=== PATIENT | male | born 1955 | race Two or more races ===

== ENCOUNTER 2024-12-25 09:48 | Inpatient (IN) | payer MEDICAID, OTHER ==
[~2024-12-25] VITALS: Ht 172.7 cm; Wt 107.0 kg
--- NOTE | 2024-12-25 10:40 | ED.PDOC ---
HPI Comments 69 year old male with a Hx of CVA and HTN was BIB Daughter for the c/c of HTN. Pt states that has had right hip to lower leg pain with pedal pitting edema for the past few months. Daughter states that pt was seen at urgent care and was advised to come to the ED due to CP and HTN. Pt is noted to not be taking any HTN medication, no facial drooping noted. Denies any SOB. No other associated symptoms, modifiers, recent injuries or sick contacts present at this time. Chief Complaint: High Blood Pressure Time Seen by MD: 10:34 Reviewed Notes: Nurses Notes, Medications, Allergies Allergies: Coded Allergies: NO KNOWN ALLERGIES (Unverified , 12/25/24) Information Source: Patient, Relative (Child) Mode of Arrival: Ambulatory Severity: Moderate Timing: Months Duration: Since onset Prehospital treatment: None Location: Chest (L) Onset: At Rest Cardiac Risk Factors: HTN PE Risk Factors: None History of: None Modifying Factors: Exertion Past Medical History PAST MEDICAL HISTORY: HTN Surgical History: Denies all surgeries Family History Family History: Reviewed,noncontributory to illness, No family hx of Cancer, No family hx of DM, No family hx of Heart nancy, No family hx of HTN, No family hx ofKidney nancy, No family hx of Liver nancy, No family hx of Lung nancy, No family hx of Stroke Social History Smoker: Non-Smoker Alcohol: Denies ETOH Use Drugs: Denies Drug Use Lives In: Home Constitutional: reports: weakness; denies: chills, diaphoresis, fatigue, fever, malaise, sweats, others EENTM: denies: blurred vision, double vision, ear bleeding, ear discharge, ear drainage, ear pain, ear ringing, eye pain, eye redness, hearing loss, mouth pain, mouth swelling, nasal discharge, nose bleeding, nose congestion, nose pain, photophobia, tearing, throat pain, throat swelling, voice changes, others Respiratory: denies: cough, hemoptysis, orthopnea, SOB at rest, shortness of breath, SOB with excertion, stridor, wheezing, others Cardiovascular: denies: chest pain, dizzy spells, diaphoresis, Dyspnea on exertion, edema, irregular heart beat, left arm pain, lightheadedness, palpitations, PND, syncope, others Gastrointestinal: denies: abdomen distended, abdominal pain, blood streaked bowels, constipated, diarrhea, dysphagia, difficulty swallowing, hematemesis, melena, nausea, poor appetite, poor fluid intake, rectal bleeding, rectal pain, vomiting, others Genitourinary: denies: burning, dysuria, flank pain, frequency, hematuria, incontinence, penile discharge, penile sore, pain, testicle pain, testicle swelling, urgency, others Neurological: denies: dizziness, fainting, headache, left sided numbness, left sided weakness, numbness, paresthesia, pre-existing deficit, right sided numbn ess, right sided weakness, seizure, speech problems, tingling, tremors, weakness, others Musculoskeletal: denies: back pain, gout, joint pain, joint swelling, muscle pain, muscle stiffness, neck pain, others Integumetry: denies: bruises, change in color, change in hair/nails, dryness, laceration, lesions, lumps, rash, wounds, others Allergic/Immunocompromised: denies: Difficulty Healing, Frequent Infections, Hives, Itching, others Hematologic/Lymphatic: denies: anemia, blood clots, easy bleeding, easy bruising, swollen glands, others Endocrine: denies: excessive hunger, excessive sweating, excessive thirst, excessive urination, flushing, intolerance to cold, intolerance to heat, unexplained weight gain, unexplained weight loss, others Psychiatric: denies: anxiety, bipolar disorder, depression, hopeless, panic disorder, schizophrenia, sleepless, suicidal, others All Other Systems: Reviewed and Negative Physical Exam General Appearance: Mild Distress, Normal, Obese, Other (Chronic ill appearing) HEENT: Normal ENT Inspection, Pharynx Normal, TMs Normal Neck: Full Range of Motion, Non-Tender, Normal Respiratory: Chest Non-Tender, Lungs Clear, No Accessory Muscle Use, No Respiratory Distress, Normal Breath Sounds Cardiovascular: No Edema, No JVD, No Murmur, Normal Peripheral Pulses, Tachycardia Breast Exam: Deferred Gastrointestinal: Non Tender, No Pulsatile Mass, Normal Bowel Sounds, Soft Genitalia: Deferred Pelvic: Deferred Rectal: Deferred Extremities: Leg edema, Normal range of motion, Non-tender, No pedal edema Musculoskeletal : Apperance: Normal Neurologic: Alert, No Motor Deficits, Normal Mood Cerebellar Function: Normal Reflexes: Normal Skin: Dry, Normal Color, Warm Lymphatic: No Adenopathy Was a procedure done? Was a procedure done?: No CP Differential Dx Differential Diagnosis: Angina, Anxiety / Panic Attack, Electrolyte Disorder, Heart Failure, Pulmonary Embolus, Sinus Tachycardia X-Ray, Labs, Meds, VS Vital Signs Date Time Temp Pulse Resp B/P (MAP) Pulse Ox O2 Delivery O2 Flow Rate FiO2 12/25/24 11:48 99.8 94 20 194/91 (125) 95 99.8 12/25/24 11:48 94 20 95 Room Air 12/25/24 10:04 95 12/25/24 10:03 98.8 105 16 194/93 (126) 97 98.8 Lab Test 12/25/24 10:49 Range/Units White Blood Count 7.2 4.4-10.8 10^3/uL Red Blood Count 4.68 4.5-5.90 10^6/uL Hemoglobin 14.1 13.5-17.5 g/dL Hematocrit 41.6 41.0-53.0 % Mean Corpuscular Volume 88.9 80.0-100.0 fL Mean Corpuscular Hemoglobin 30.2 28.0-32.0 pg Mean Corpuscular Hemoglobin Concent 34.0 32.0-36.0 g/dL Red Cell Distribution Width 14.4 H 11.8-14.3 % Platelet Count 253 140-450 10^3/uL Mean Platelet Volume 8.2 6.9-10.8 fL Neutrophils (%) (Auto) 67.9 37.0-80.0 % Lymphocytes (%) (Auto) 19.1 10.0-50.0 % Monocytes (%) (Auto) 7.7 0.0-12.0 % Eosinophils (%) (Auto) 4.2 0.0-7.0 % Basophils (%) (Auto) 1.1 0.0-2.0 % Neutrophils # (Auto) 4.9 1.6-8.6 10 ^3/uL Lymphocytes # (Auto) 1.4 0.4-5.4 10 ^3/uL Monocytes # (Auto) 0.6 0-1.3 10 ^3/uL Eosinophils # (Auto) 0.3 0-0.8 10 ^3/uL Basophils # (Auto) 0.1 0-0.2 10 ^3/uL Nucleated Red Blood Cells 0.1 % D-Dimer, Quantitative 1.98 H 0.0-0.49 mg/L FEU Sodium Level 144 136-145 mmol/L Potassium Level 3.3 L 3.5-5.1 mmol/L Chloride Level 112 H 98-107 mmol/L Carbon Dioxide Level 21 20-31 mmol/L Anion Gap 11 5-15 Blood Urea Nitrogen 9 9-23 mg/dL Creatinine 1.01 0.700-1.30 mg/dL Glomerular Filtration Rate Calc 81 >90 mL/min BUN/Creatinine Ratio 8.9 L 10.0-20.0 Serum Glucose 138 H 74-106 mg/dL Calcium Level 10.2 8.7-10.4 mg/dL Troponin I High Sensitivity 13 </=54 ng/L Time of 1ST Reevaluation: 11:05 Reevaluation 1ST: Unchanged Patient Education/Counseling: Diagnosis, Treatment Family Education/Counseling: Diagnosis, Treatment SEPSIS Sepsis Screen Date sepsis recognized/suspect: Dec 25, 2024 Time Sepsis recognized/suspect: 957 Recent Procedure: No On Antibiotic Therapy: No Respiratory Rate >20: No Heart Rate >90: No Temp<36 C (96.8 F) or >38.3 C: No SBP <90 or MAP <65 mmHG: No New Acute Mental Status Change: No Is the patient on CPAP, BIPAP,: No Orders/Vitals/Labs Physician Orders Troponin-I Hs (12/25/24 11:36) Troponin-I Hs (12/25/24 13:36) Rt Lower Dvt (12/25/24 10:36) Head Without Contrast (12/25/24 10:36) Chest Portable (12/25/24 10:36) Electrocardigram (12/25/24 10:38) Vital Signs Date Time Temp Pulse Resp B/P (MAP) Pulse Ox O2 Delivery O2 Flow Rate FiO2 12/25/24 11:48 99.8 94 20 194/91 (125) 95 99.8 12/25/24 11:48 94 20 95 Room Air 12/25/24 10:04 95 12/25/24 10:03 98.8 105 16 194/93 (126) 97 98.8 Laboratory Tests Test 12/25/24 10:49 White Blood Count 7.2 10^3/uL (4.4-10.8) Departure 1 Departure Time of Disposition: 11:57 (Patient with worsening right-sided weakness hyp ertensive. Patient's CT with age-indeterminate infarct. We will admit patient for further workup and expert consultation.) Impression: Primary Impression: Right leg weakness Additional Impression: Abnormal head CT Disposition: ADMITTED INPATIENT Admit to: Med Surg Condition: Serious Critical Care Note Critical Care Time?: Yes Critical care comment: Concern for CVA Authorized and Performed by: Carlitos Arnett MD Total critical care time: Approximately 42 minutes Due to a high probability of clinically significant, life threatening deterioration, the patient required my highest level of preparedness to intervene emergently and I personally spent this critical care time directly and personally managing the patient. This critical care time included obtaining a history; examining the patient; pulse oximetry; ordering and review of studies; arranging urgent treatment with development of a management plan; evaluation of patient's response to treatment; frequent reassessment; and, discussions with other providers. This critical care time was performed to assess and manage the high probability of imminent, life-threatening deterioration that could result in multi-organ failure. It was exclusive of separately billable procedures and treating other patients and teaching time. Please see my other sections and the rest of the note for further information on patient assessment and treatment. Stability Stability form required: No Heart Score Heart Score: Heart Score Response (Comments) Value History N/A 0 EKG N/A 0 Age N/A 0 Risk Factors N/A 0 Troponin N/A 0 Total 0 I personally scribed for CARLITOS ARNETT MD ([email or web address]) on 12/25/24 at 10:39. Electronically submitted by Job Preston ([email or web address]). CARLITOS ARNETT MD Dec 25, 2024 10:39
[2024-12-25 11:09] LABS: Basophils # (auto) 0.1 10 ^3/uL (0-0.2); Basophils % (auto) 1.1 % (0.0-2.0); Eosinophils # (auto) 0.3 10 ^3/uL (0-0.8); Eosinophils % (auto) 4.2 % (0.0-7.0); Hematocrit 41.6 % (41.0-53.0); Hemoglobin 14.1 g/dL (13.5-17.5); Lymphocytes # (auto) 1.4 10 ^3/uL (0.4-5.4); Lymphocytes % (auto) 19.1 % (10.0-50.0); Mean Corpuscular Hemoglobin 30.2 pg (28.0-32.0); Mean Corpuscular Volume 88.9 fL (80.0-100.0); Monocytes # (auto) 0.6 10 ^3/uL (0-1.3); Monocytes % (auto) 7.7 % (0.0-12.0); Neutrophils # (auto) 4.9 10 ^3/uL (1.6-8.6); Neutrophils % (auto) 67.9 % (37.0-80.0); Nucleated Red Blood Cells % 0.1 %; Platelet Count (auto) 253 10^3/uL (140-450); Red Blood Cells 4.68 10^6/uL (4.5-5.90); Red Cell Distribution Width 14.4 % (11.8-14.3); White Blood Cell 7.2 10^3/uL (4.4-10.8)
--- NOTE | 2024-12-25 11:12 | DVH ---
CHEST RADIOGRAPH Indication: right leg pain, weakness Technique: Single frontal view of the chest was obtained COMPARISON: None FINDINGS: Lines and Tubes: None Lungs: Clear Pleura: No effusion. No pneumothorax. Cardiomediastinal contours: Unremarkable Bones: Unremarkable IMPRESSION: No acute disease.
[2024-12-25 11:18] LABS: Chloride 112 mmol/L (98-107); Potassium 3.3 mmol/L (3.5-5.1); Sodium 144 mmol/L (136-145)
[2024-12-25 11:19] LABS: Anion Gap 11 (5-15); Calcium 10.2 mg/dL (8.7-10.4); Carbon Dioxide 21 mmol/L (20-31)
--- NOTE | 2024-12-25 11:20 | DVH ---
EXAM: CT HEAD WITHOUT CONTRAST INDICATION: right leg weakness, htn TECHNIQUE: CT of the head without intravenous contrast. Radiation Dose : 1. Head: CT Dose: CTDI volume is 58.34 mGy. Dose-length product is 1051.89 mGy*cm The dose indicators for CT are the volume Computed Tomography (CT) Dose Index (CTDIvol) and the Dose Length Product (DLP), and are measured in units of mGy and mGy-cm, respectively. These indicators are not patient dose, but values generated from the CT scanner acquisition factors. The report includes radiation exposure data for exposures received during this examination. COMPARISON: None FINDINGS: Subtle hypoattenuation in the posterior left internal capsule. The ventricles, sulci and cisterns are age appropriate. The rubi-white differentiation is intact. Patchy periventricular and subcortical white matter hypoattenuation is nonspecific but may be related to small vessel ischemic disease. The visualized paranasal sinuses and mastoid air cells are clear. The surrounding soft tissues and osseous structures are unremarkable. IMPRESSION: Subtle hypoattenuation in the posterior left internal capsule may represent an age indeterminate infa rct felt to be chronic, however, no prior CT is available for comparison. Clinical correlation advise d. MRI can be obtained to further evaluate if clinically indicated. Otherwise, no acute intracranial abnormality.
--- NOTE | 2024-12-25 11:20 | DVH ---
Right lower extremity venous duplex Clinical History: right leg swelling and pain Comparison: None Technique: Duplex Doppler evaluation of the deep venous system of the right lower extremity from the common femo ral vein to the popliteal vein including color Doppler and spectral/pulsed waveform analysis was perf ormed. Findings: The common femoral vein demonstrates appropriate compressibility and waveform variability. There is compressibility/patency of the great saphenous vein at the proximal thigh. The femoral vein demonstrates appropriate compressibility and waveform variability. The deep femoral vein demonstrates appropriate compressibility and waveform variability. The popliteal vein demonstrates appropriate compressibility and waveform variability. There is normal compressibility at the tibioperoneal trunk. Impression: No right femoropopliteal venous thrombosis.
[2024-12-25 11:24] LABS: BUN/Creatinine Ratio 8.9 (10.0-20.0)
[2024-12-25 11:27] LABS: Blood Urea Nitrogen 9 mg/dL (9-23); Glucose 138 mg/dL (74-106)
[2024-12-25] MEDS ORDERED: ONDANSETRON HCL 4 MG/2 ML VIAL IV PRN (15:30)
[2024-12-25] MEDS ORDERED: ACETAMINOPHEN 325 MG TAB PO PRN (15:30)
[2024-12-25] MEDS ORDERED: DOCUSATE SOD 100 MG CAP PO PRN (15:30)
[2024-12-25] MEDS: IOHEXOL 350 MG/ML 100ML IJ ONE (16:45)
[2024-12-25] MEDS: POTASSIUM CHL 20 Meq TABLET PO ONE (16:45)
--- NOTE | 2024-12-25 18:03 | DVHHP2 ---
History of Present Illness Reason for Visit: Hypertensive urgency History of Present Illness The patient is a 69-year-old male with past medical history of CVA and hypertension who presented to [facility] ED with complaint of high blood pressure. Patient reports he has been experiencing right hip to lower leg pain with pedal pitting edema for the past few months. Daughter states that patient was seen at urgent care and was advised to come to the ED. patient was seen and evaluated in the ED, laboratory data shows WBC 7.2, platelets 253, sodium 144, potassium 3.3, BUN nine, creatinine 1.01, GFR 81, glucose 138, calcium 10.2, troponin 18, D-dimer 1.98, blood pressure 194/93, heart rate 79, temperature 98.5 F, O2 saturation 97% on room air. Extremity venous study show no right femoropopliteal venous thrombosis, CT angiography chest results pending. Patient was given IV hydralazine, please see medication orders section in the computer. On my assessment, patient denied chest pain, no headache, no diaphoresis, no dizziness, no shortness of breath, no nausea, no vomiting, no fever, no chills. Patient was admitted for further evaluation and medical management. Past Medical History Hypertension, CVA Past Surgical History Denies all surgeries Family History Reviewed, noncontributory to the management of this case. Past Social History The patient lives at home, denies smoking, alcohol or illicit drugs abuse. Review of Systems Constitutional: Yes: Weakness; No: Fever, Chills, Sweats, Malaise, Other Eyes: No: Pain, Vision change, Conjunctivae inflammation, Eyelid inflammation, Other, Redness ENT: No: Ear pain, Ear discharge, Nose pain, Nose discharge, Nose congestion, Mouth pain, Mouth swelling, Throat pain, Throat swelling, Other Respiratory: No: Cough, Dry, Shortness of breath, SOB with excertion, Wheezing, Hemoptysis, Pleuritic Pain, Sputum, Wheezing, Other Cardiovascular: Other (Hypertension); No: Chest Pain, Palpitations, Orthopnea, Paroxysmal Noc. Dyspnea, Edema, Lt Headedness Gastrointestinal: No: Nausea, Vomiting, Abdominal Pain, Diarrhea, Constipation, Melena, Hematochezia, Other Genitourinary: No Dysuria, No Frequency, No Incontinence, No Hematuria, No Retention, No Other Musculoskeletal: No: other, neck pain, shoulder pain, arm pain, back pain, hand pain, leg pain, foot pain Skin: No: Rash, Lesions, Jaundice, Bruising, Other Neurological: No: Weakness, Numbness, Incoordination, Change in speech, Confusion, Seizures, Other Allergies: Coded Allergies: NO KNOWN ALLERGIES (Unverified , 12/25/24) Medications Current Medications Medications Dose Ordered Sig/Saw Route Start Time Stop Time Status Last Admin Dose Admin Losartan Potassium 100 mg DAILY PO 12/26/24 10:00 Hydralazine HCl 10 mg Q6HP PRN IV 12/25/24 15:30 Amlodipine Besylate 10 mg DAILY PO 12/26/24 10:00 Atorvastatin Calcium 20 mg HS PO 12/25/24 22:00 Sodium Chloride 10 ml Q8HR IV 12/25/24 22:00 Acetaminophen/ Hydrocodone Bitart 1 tab Q4HP PRN PO 12/25/24 15:30 Ondansetron HCl 4 mg Q4HP PRN IV 12/25/24 15:30 Docusate Sodium 100 mg BIDPRN PRN PO 12/25/24 15:30 Acetaminophen 650 mg Q6HP PRN PO 12/25/24 15:30 Exam Vital Signs Vital Signs Date Time Temp Pulse Resp B/P (MAP) Pulse Ox O2 Delivery O2 Flow Rate FiO2 12/25/24 15:01 98.5 79 20 178/94 (122) 97 98.5 12/25/24 11:48 Room Air General Appearance: Alert, Oriented X3, Cooperative, No acute distress HEENT: Atraumatic, PERRLA, EOMI, Mucous membr. moist/pink Respiratory: Clear to auscultation, Normal air movement Cardiovascular: Regular rate, Normal S1, Normal S2, No murmurs Abdominal: Normal bowel sounds, Soft, No tenderness, No hepatospenomegaly, No masses Extremities: No clubbing, No cyanosis, No edema, Normal pulses, No tenderness/swelling Skin: No rashes, No breakdown, No significant lesion Neuro: Normal speech, Normal tone, Sensation intact, Cranial nerves 3-12 NL, Reflexes 2+, Other (Generalized weakness) Psych/Mental Status: Mental status NL, Mood NL Labs/Xrays Labs Test 12/25/24 14:28 12/25/24 10:49 Range/Units Troponin I High Sensitivity 18 </=54 ng/L White Blood Count 7.2 4.4-10.8 10^3/uL Red Blood Count 4.68 4.5-5.90 10^6/uL Hemoglobin 14.1 13.5-17.5 g/dL Hematocrit 41.6 41.0-53.0 % Mean Corpuscular Volume 88.9 80.0-100.0 fL Mean Corpuscular Hemoglobin 30.2 28.0-32.0 pg Mean Corpuscular Hemoglobin Concent 34.0 32.0-36.0 g/dL Red Cell Distribution Width 14.4 H 11.8-14.3 % Platelet Count 253 140-450 10^3/uL Mean Platelet Volume 8.2 6.9-10.8 fL Neutrophils (%) (Auto) 67.9 37.0-80.0 % Lymphocytes (%) (Auto) 19.1 10.0-50.0 % Monocytes (%) (Auto) 7.7 0.0-12.0 % Eosinophils (%) (Auto) 4.2 0.0-7.0 % Basophils (%) (Auto) 1.1 0.0-2.0 % Neutrophils # (Auto) 4.9 1.6-8.6 10 ^3/uL Lymphocytes # (Auto) 1.4 0.4-5.4 10 ^3/uL Monocytes # (Auto) 0.6 0-1.3 10 ^3/uL Eosinophils # (Auto) 0.3 0-0.8 10 ^3/uL Basophils # (Auto) 0.1 0-0.2 10 ^3/uL Nucleated Red Blood Cells 0.1 % D-Dimer, Quantitative 1.98 H 0.0-0.49 mg/L FEU Sodium Level 144 136-145 mmol/L Potassium Level 3.3 L 3.5-5.1 mmol/L Chloride Level 112 H 98-107 mmol/L Carbon Dioxide Level 21 20-31 mmol/L Anion Gap 11 5-15 Blood Urea Nitrogen 9 9-23 mg/dL Creatinine 1.01 0.700-1.30 mg/dL Glomerular Filtration Rate Calc 81 >90 mL/min BUN/Creatinine Ratio 8.9 L 10.0-20.0 Serum Glucose 138 H 74-106 mg/dL Calcium Level 10.2 8.7-10.4 mg/dL PATIENT: MAKENZIE SILVERACCT: [id number] UNIT: [id number] : 1955 LOC: ER ROOM / BED: / AGE / SEX: 69 / M ADM STATUS: REG ER SERVICE 1036 ORDERING PHYSICIAN: CARLITOS GARZA MD PROCEDURE(s): RLDVT - RT Lower DVT REASON: right leg swelling and pain ORDER NUMBER(s): [id number], ACCESSION NUMBER(s): [id number] Right lower extremity venous duplex Clinical History: right leg swelling and pain Comparison: None Technique: Duplex Doppler evaluation of the deep venous system of the right lower extremity from the common femoral vein to the popliteal vein including color Doppler and spectral/pulsed waveform analysis was performed. Findings: The common femoral vein demonstrates appropriate compressibility and waveform v ariability. There is compressibility/patency of the great saphenous vein at the proximal thigh. The femoral vein demonstrates appropriate compressibility and waveform variability. The deep femoral vein demonstrates appropriate compressibility and waveform variability. The popliteal vein demonstrates appropriate compressibility and waveform variability. There is normal compressibility at the tibioperoneal trunk. Impression: No right femoropopliteal venous thrombosis. ORDERING PHYSICIAN: CARLITOS GARZA MD PROCEDURE(s): HWOCT - HEAD WITHOUT CONTRAST REASON: right leg weakness, htn ORDER NUMBER(s): [id number], ACCESSION NUMBER(s): [id number] EXAM: CT HEAD WITHOUT CONTRAST INDICATION: right leg weakness, htn TECHNIQUE: CT of the head without intravenous contrast. Radiation Dose: 1. Head: CT Dose: CTDI volume is 58.34 mGy. Dose-length product is 1051.89 mGy*cm The dose indicators for CT are the volume Computed Tomography (CT) Dose Index (CTDIvol) and the Dose Length Product (DLP), and are measured in units of mGy and mGy-cm, respectively. These indicators are not patient dose, but values generated from the CT scanner acquisition factors. The report includes radiation exposure data for exposures received during this examination. COMPARISON: None FINDINGS: Subtle hypoattenuation in the posterior left internal capsule. The ventricles, sulci and cisterns are age appropriate. The rubi-white differentiation is intact. Patchy periventricular and subcortical white matter hypoattenuation is nonspecific but may be related to small vessel ischemic disease. The visualized paranasal sinuses and mastoid air cells are clear. The surrounding soft tissues and osseous structures are unremarkable. IMPRESSION: Subtle hypoattenuation in the posterior left internal capsule may represent an age indeterminate infarct felt to be chronic, however, no prior CT is available for comparison. Clinical correlation advised. MRI can be obtained to further evaluate if clinically indicated. Otherwise, no acute intracranial abnormality. ORDERING PHYSICIAN: CARLITOS GARZA MD PROCEDURE(s): CXRP - CHEST PORTABLE REASON: right leg pain, weakness ORDER NUMBER(s): [id number], ACCESSION NUMBER(s): [id number] CHEST RADIOGRAPH Indication: right leg pain, weakness Technique: Single frontal view of the chest was obtained COMPARISON: None FINDINGS: Lines and Tubes: None Lungs: Clear Pleura: No effusion. No pneumothorax. Cardiomediastinal contours: Unremarkable Bones: Unremarkable IMPRESSION: No acute disease. Assessment/Plan Assessment/Plan Hypertensive urgency Hypokalemia Elevated D-dimer Generalized weakness Plan 1. Admit to telemetry unit 2. Breathing treatment 3. Pain control management 4. Management of fluids and electrolytes 5. Consultation for hospitalist 6. Diagnostic tests CT angiography 7. DVT prophylaxis-on aspirin 8. Repeat labs CBC, CMP in a.m. 9. Continue with current medical management 10. Treatment plan discussed with patient and RN. Patient verbalized understanding. Plan discussed with: Patient, Other (RN) My Orders Orders - VICKI OLIVER DNP Procedure Category Date Status Time Losartan Tablet PHA 12/26/24 In Process (Cozaar Tablet) 10:00 Hydralazine Injection PHA 12/25/24 In Process (Apresoline Inject 15:30 Amlodipine Tablet PHA 12/26/24 In Process (Norvasc Tablet) 10:[address] 12/25/24 Taken Contrast 15:17 Atorvastatin (Lipitor) PHA 12/25/24 In Process 22:00 Allergies OSMANY 12/25/24 In Process 15:17 Code Status CODE 12/25/24 Transmitted 15:17 Sodium Chloride Lock PHA 12/25/24 In Process (Saline Lock Ns) 22:00 Oxygen Per Hour RT 12/25/24 Transmitted 15:17 Hydrocodone-Acet PHA 12/25/24 In Process 5/325mg Tab ([place] 15:30 Ondansetron Hcl PHA 12/25/24 In Process (Zofran) 15:30 Docusate Sodium PHA 12/25/24 In Process Capsule (Colace 15:30 Fall Risk Precautions OSMANY 12/25/[address] 15:17 Complete Blood Count LAB 12/26/24 Verified 04:00 Comprehensive LAB 12/26/24 Verified Metabolic Panel 04:00 Cardiac DIET 12/25/24 Transmitted Diet-2gna,Lofat,Lochol Dinner Condition: Serious OSMANY 12/25/24 In Process 15:17 Acetaminophen Tablet PHA 12/25/24 In Process (Tylenol Tablet) 15:30 Maintain Bed Rest OSMANY 12/25/24 In Process 15:17 Sequential OSMANY 12/25/24 In Process Compression Device Problem List: (1) Hypertensive urgency (2) Hypokalemia (3) Elevated d-dimer (4) Generalized weakness Date of Service: Dec 25, 2024 Billing Provider: VICKI OLIVER DNP Common Visit Codes: 96101-[id number] INP/OBS CARE (HIGH) VICKI OLIVER DNP Dec 25, 2024 18:03
[2024-12-25] MEDS ORDERED: MORPHINE SULFATE INJ 2 MG/ml SYRG IV PRN (18:15)
[2024-12-25] MEDS ORDERED: NITROGLYCERIN 0.4 MG SL TAB SL PRN (18:15)
[2024-12-25] MEDS: hydrALAZINE HCL 20 MG/ML VL IV PRN (18:21)
[2024-12-25] MEDS ORDERED: ATOR20TA PO (21:39)
[2024-12-25] MEDS ORDERED: LOSA100T14 PO (21:39)
[2024-12-25] MEDS: SODIUM CHLOR 0.9% PF (SALINE LOCK) 10ML VIAL/SYR IV SCH (22:09)
[2024-12-25] MEDS: ATORVASTATIN 20 MG TAB PO SCH (22:09)
[2024-12-25] MEDS: amLODIPine BESYLATE 5 MG TAB PO ONE (22:09)
[2024-12-25 23:50] VITALS: BP 137/88; PULSE 74; RESP 18; TEMP 98; O2SAT 98
[2024-12-26] VITALS (8 sets, daily range): BP systolic 128–156; BP diastolic 74–85; PULSE 68–96; RESP 16–20; TEMP 97.3–98.8; O2SAT 96–99
[2024-12-26 06:41] LABS: Basophils # (auto) 0.1 10 ^3/uL (0-0.2); Basophils % (auto) 1.1 % (0.0-2.0); Eosinophils # (auto) 0.4 10 ^3/uL (0-0.8); Eosinophils % (auto) 5.8 % (0.0-7.0); Hematocrit 40.4 % (41.0-53.0); Hemoglobin 13.6 g/dL (13.5-17.5); Lymphocytes # (auto) 1.3 10 ^3/uL (0.4-5.4); Lymphocytes % (auto) 21.1 % (10.0-50.0); Mean Corpuscular Hemoglobin 29.9 pg (28.0-32.0); Mean Corpuscular Hgb Conc. 33.8 g/dL (32.0-36.0); Mean Corpuscular Volume 88.6 fL (80.0-100.0); Monocytes # (auto) 0.7 10 ^3/uL (0-1.3); Monocytes % (auto) 10.7 % (0.0-12.0); Neutrophils # (auto) 3.8 10 ^3/uL (1.6-8.6); Neutrophils % (auto) 61.3 % (37.0-80.0); Nucleated Red Blood Cells % 0.2 %; Platelet Count (auto) 249 10^3/uL (140-450); Red Blood Cells 4.56 10^6/uL (4.5-5.90); Red Cell Distribution Width 14.2 % (11.8-14.3); White Blood Cell 6.2 10^3/uL (4.4-10.8)
[2024-12-26 07:00] LABS: Albumin 3.8 g/dL (3.2-4.8); Alkaline Phosphatase 65 U/L (46-116); Anion Gap 12 (5-15); BUN/Creatinine Ratio 11.4 (10.0-20.0); Bilirubin, Total 0.6 mg/dL (0.2-1.0); Blood Urea Nitrogen 10 mg/dL (9-23); Calcium 9.1 mg/dL (8.7-10.4); Carbon Dioxide 21 mmol/L (20-31); Glucose 90 mg/dL (74-106); Sodium 143 mmol/L (136-145); Total Protein 6.3 g/dL (5.7-8.2)
[2024-12-26 07:10] LABS: Alanine Aminotransferase 60 U/L (7-40); Aspartate Aminotransferase 53 U/L (<34); Chloride 110 mmol/L (98-107); Potassium 3.2 mmol/L (3.5-5.1)
[2024-12-26] MEDS: amLODIPine BESYLATE 5 MG TAB PO SCH (08:41)
[2024-12-26] MEDS: LOSARTAN POTASSIUM 50 MG TAB PO SCH (08:55)
--- NOTE | 2024-12-26 16:20 | DVHPN2 ---
Subjective in bed resting and feeling well Reviewed: H&P, Labs Changes from previous H/P or p: No Changes Eyes: No Pain, No Vision change, No Conjunctivae inflammation, No Eyelid inflammation, No Other, No Redness ENT: No Ear pain, No Ear discharge, No Nose pain, No Nose discharge, No Nose congestion, No Mouth pain, No Mouth swelling, No Throat pain, No Throat swelling, No Other Cardiovascular: No Chest Pain, No Palpitations, No Orthopnea, No Paroxysmal Noc. Dyspnea, No Edema, No Lt Headedness; Other (Hypertension) Respiratory: No Cough, No Dry, No Shortness of breath, No SOB with excertion, No Wheezing, No Hemoptysis, No Pleuritic Pain, No Sputum, No Other Gastrointestinal: No Nausea, No Vomiting, No Abdominal Pain, No Diarrhea, No Constipation, No Melena, No Hematochezia, No Other Genitourinary: No Dysuria, No Frequency, No Incontinence, No Hematuria, No Retention, No Other Musculoskeletal: No other, No neck pain, No shoulder pain, No arm pain, No back pain, No hand pain, No leg pain, No foot pain Skin: No Rash, No Lesions, No Jaundice, No Bruising, No Other Objective Vitals Vital Signs Date Time Temp Pulse Resp B/P (MAP) Pulse Ox O2 Delivery O2 Flow Rate FiO2 12/26/24 12:29 97.8 69 18 128/77 (94) 96 97.8 12/26/24 08:00 Room Air* 0 21 Intake/Output Intake and Output 12/26/24 07:00 Intake Total 100 ml Output Total 0 ml Balance 100 ml Intake Oral 100 ml Output Urine Total 0 ml General Appearance: Alert, Oriented X3 HEENT: Atraumatic Cardiovascular: Regular rate, Normal S1, Normal S2 Abdomen: Normal bowel sounds Medications Current Medications Medications Dose Ordered Sig/Saw Route Start Time Stop Time Status Last Admin Dose Admin Losartan Potassium 100 mg DAILY PO 12/26/24 10:00 12/26/24 08:55 100 MG Hydralazine HCl 10 mg Q6HP PRN IV 12/25/24 15:30 12/25/24 18:21 10 MG Amlodipine Besylate 10 mg DAILY PO 12/26/24 10:00 12/26/24 08:41 10 MG Atorvastatin Calcium 20 mg HS PO 12/25/24 22:00 12/25/24 22:09 20 MG Sodium Chloride 10 ml Q8HR IV 12/25/24 22:00 12/26/24 13:35 10 ML Acetaminophen/ Hydrocodone Bitart 1 tab Q4HP PRN PO 12/25/24 15:30 Ondansetron HCl 4 mg Q4HP PRN IV 12/25/24 15:30 Docusate Sodium 100 mg BIDPRN PRN PO 12/25/24 15:30 Acetaminophen 650 mg Q6HP PRN PO 12/25/24 15:30 Nitroglycerin 0.4 mg Q5MINP PRN SL 12/25/24 18:15 Morphine Sulfate 2 mg Q30M PRN IV 12/25/24 18:15 Laboratory Results Laboratory Tests 12/26/24 04:57 Chemistry Test 12/26/24 04:57 Albumin 3.8 g/dL (3.2-4.8) Calcium Level 9.1 mg/dL (8.7-10.4) Total Protein 6.3 g/dL (5.7-8.2) LFT Test 12/26/24 04:57 Alanine Aminotransferase (ALT) 60 U/L (7-40) H Alkaline Phosphatase 65 U/L (46-116) Aspartate Amino Transferase (AST) 53 U/L (<34) H Total Bilirubin 0.6 mg/dL (0.2-1.0) Assessment/Plan Assessment/Plan Hypertensive urgency Hypokalemia Elevated D-dimer Generalized weakness continue amlodipine, losartan PRN hydralazine MRI brain today Dispo: If MRI negative and BP stable can discharge tomorrow Plan discussed with: Patient Date of Service: Dec 26, 2024 Billing Provider: DMITRI SEYMOUR MD Common Visit Codes: [id number] INP/OBS CARE(HIGH) DMITRI SEYMOUR MD Dec 26, 2024 16:20
--- NOTE | 2024-12-26 16:26 | DVH ---
CTA Chest with intravenous contrast INDICATION: Pulmonary embolism COMPARISON: None TECHNIQUE: Multidetector spiral CTA of the chest was performed of the chest with intravenous contrast . PULMONARY ANGIOGRAPHY PROTOCOL was utilized using a bolus-tracking technique centered on the main p ulmonary artery. Axial, coronal and sagittal multiplanar and MIP reformats were performed. CONTRAST: Type of contrast: Omni 350 Contrast injected: 100 ml Radiation dose : Chest: CTDI volume is 28.62 mGy. Dose-length product is 1061.06 mGy*cm The dose indicators for CT are the volume computed Tomography (CT) dose Index (CTDIvol) and the dose Length product (DLP), and are measured in units of mGy and mGy-cm, respectively. These indicators are not patient dose, but values generated from the CT scanner acquisition factors. The report includes radiation exposure data for exposures received during this examination. Findings: Limited by motion. Pulmonary artery: No large central or large segmental pulmonary embolism. Lower neck: Normal thyroid. Lungs: Mild atelectasis and consolidation in the lung bases. Patchy ground-glass opacities. Heart/Vascular Structures: Normal heart size. No pericardial effusion. Lymph Nodes: Mediastinal and hilar lymphadenopathy. Pleura: No pleural effusion or significant pneumothorax. Musculoskeletal: No acute osseous abnormality. Soft tissues: Normal. Upper abdomen: Right renal cyst. IMPRESSION: 1. Limited by motion. No large central pulmonary embolism. 2. Patchy ground-glass opacities with atelectasis and consolidation in the lung bases. Mediastinal an d bilateral hilar lymphadenopathy. Superimposed infectious/ inflammatory process is not excluded. Cl inical correlation and continued follow-up is recommended. HS:Y
[2024-12-26] MEDS: HYDROcodone-ACET 5/325MG TAB PO PRN (21:56)
[2024-12-27] VITALS (8 sets, daily range): BP systolic 132–150; BP diastolic 72–87; PULSE 71–86; RESP 18; TEMP 36.5; O2SAT 96–99
--- NOTE | 2024-12-27 10:20 | DVH ---
MRI BRAIN HEAD WO CONTRAST INDICATION: weakness rule out stroke EXAM DATE: 12/27/2024 08:26 AM COMPARISON: None PROCEDURE: Using a 1.5 Renu scanner, multisequence multiplanar imaging of the brain was obtained. FINDINGS: The brainshows normal morphology and signal characteristics. No abnormal T2 hyperintensity, diffusion restriction, or susceptibility hypointensity is present. The ventricles are normal in size . The midline structures are intact. The major intracranial flow voids are present. The aerated space s are normal. The orbital contents and extracranial soft tissues appear normal. IMPRESSION: No acute abnormal MRI findings of the brain.
--- NOTE | 2024-12-27 10:53 | ECG ---
[facility] Test Date: 2024-12-25 Test Time: 10:04:07 Pat Name: MAKENZIE FAYE Department: ER Room: [facility]4T B Gender: M Respiratory Care Technician: dr LION: [id number] Requested By: CARLITOS GARZA Order Number: [id number] Reading MD: Dwight Rhoades Measurements Intervals [place] Rate: 95 P: 22 MI: 148 QRS: -20 QRSD: 82 T: 63 QT: 345 QTc: 434 Interpretive Statements Sinus rhythm Inferior infarct, old Electronically Signed On 12-28-2024 21:13:57 PDT by Dwight Rhoades Please click the below link to view image of tracing.
[2024-12-27] MEDS: BACLOFEN 10 MG TAB PO ONE (15:14)
[2024-12-27 16:00] LABS: Alkaline Phosphatase 74 U/L (46-116); Carbon Dioxide 26 mmol/L (20-31)
[2024-12-27 16:01] LABS: Albumin 4.5 g/dL (3.2-4.8); Anion Gap 10 (5-15); BUN/Creatinine Ratio 11.8 (10.0-20.0); Bilirubin, Total 0.7 mg/dL (0.2-1.0); Blood Urea Nitrogen 11 mg/dL (9-23); Sodium 145 mmol/L (136-145); Total Protein 7.2 g/dL (5.7-8.2)
[2024-12-27 16:03] LABS: Alanine Aminotransferase 66 U/L (7-40); Aspartate Aminotransferase 56 U/L (<34); Calcium 10.6 mg/dL (8.7-10.4); Chloride 109 mmol/L (98-107); Glucose 121 mg/dL (74-106); Potassium 3.3 mmol/L (3.5-5.1)
--- NOTE | 2024-12-27 16:09 | DVHDS2 ---
Discharge Summary Date of Admission Dec 25, 2024 at 18:02 Date of Discharge: Dec 27, 2024 Labs/Diagnostic Data: Laboratory Results Test 12/27/24 15:23 12/26/24 04:57 12/25/24 14:28 12/25/24 10:49 White Blood Count 6.2 10^3/uL (4.4-10.8) Red Blood Count 4.56 10^6/uL (4.5-5.90) Hemoglobin 13.6 g/dL (13.5-17.5) Hematocrit 40.4 % (41.0-53.0) Mean Corpuscular Volume 88.6 fL (80.0-100.0) Mean Corpuscular Hemoglobin 29.9 pg (28.0-32.0) Mean Corpuscular Hemoglobin Concent 33.8 g/dL (32.0-36.0) Red Cell Distribution Width 14.2 % (11.8-14.3) Platelet Count 249 10^3/uL (140-450) Mean Platelet Volume 8.4 fL (6.9-10.8) Neutrophils (%) (Auto) 61.3 % (37.0-80.0) Lymphocytes (%) (Auto) 21.1 % (10.0-50.0) Monocytes (%) (Auto) 10.7 % (0.0-12.0) Eosinophils (%) (Auto) 5.8 % (0.0-7.0) Basophils (%) (Auto) 1.1 % (0.0-2.0) Neutrophils # (Auto) 3.8 10 ^3/uL (1.6-8.6) Lymphocytes # (Auto) 1.3 10 ^3/uL (0.4-5.4) Monocytes # (Auto) 0.7 10 ^3/uL (0-1.3) Eosinophils # (Auto) 0.4 10 ^3/uL (0-0.8) Basophils # (Auto) 0.1 10 ^3/uL (0-0.2) Nucleated Red Blood Cells 0.2 % Troponin I High Sensitivity 18 ng/L (</=54) D-Dimer, Quantitative 1.98 mg/L FEU (0.0-0.49) Other Laboratory Tests 12/26/24 04:57 Brief Hx & Hospital Course: 69-year-old male with past medical history of CVA and hypertension who presented to [facility] ED with complaint of high blood pressure. Patient reports he has been experiencing right hip to lower leg pain with pedal pitting edema for the past few months. Daughter states that patient was seen at urgent care and was advised to come to the ED. Extremity venous study show no right femoropopliteal venous thrombosis, CT angiography chest results pending. Patient was given IV hydralazine. Patient has tachycardia, tachypnea with concern for PE. CTA done is negative for PE. Patient's symptoms are concerning for CV given she also has history of stroke and presenting with hypotension. MRI brain done ruling out CVA. Patient also complaining of left neck pain radiating to left arm. Left-sided Spurling test is positive, CT C-spine non-con is pending. Patient is admitted for hypertensive emergency as there is transaminitis with SBP more than 190. Patient is given IV hydralazine to control blood pressure NPO medications were started. Diagnosis: Hypertensive emergency Hypokalemia, resolved Transaminitis Tachypnea Tachycardia Sirs with end-organ damage Elevated D-dimer Ruled out PE Ruled out CVA Left cervicalgia Generalized weakness Discharge plan - Flexeril 10 nightly, insulin tablets fell prn use, patient cautioned on side effects of drowsiness and to avoid motorized vehicle operation if utilizing daytime cyclobenzaprine - continue to take antihypertensive p.o. medications (amlodipine 10 mg daily, losartan 100 mg daily) - Continue other home medications not mentioned above - follow up with PCP to resume care and for discharge follow up. PCP to discuss CT C spine findings. Condition at Discharge: Fair Final Diagnosis/Problems List Hypertensive emergency Hypokalemia, resolved Transaminitis Tachypnea Tachycardia Sirs with end-organ damage Elevated D-dimer Ruled out PE Ruled out CVA Left cervicalgia Generalized weakness Discharge Disposition: Home Discharge Statement: "Patient was advised to return to the ER or call 911 if any headaches, dizziness, shortness of breath, chest pain, abdominal pain, bleeding, fevers, or worsening of medical condition. Patient was counseled about treatment plan, medications, possible side effects, patientverbalized understanding. All questions were answered to the best of my ability. This discharge took greater then 30 minutes in planning, reviewing documentation, counseling the patient, and discussing with other team members." ASSESSMENT ASSESSMENT Assessment Date of Service: Dec 27, 2024 Billing Provider: CLIFFORD RANGEL MD Common Visit Codes: [id number] DISCH DAY >30min CLIFFORD RANGEL MD Dec 27, 2024 16:09
[2024-12-27] MEDS ORDERED: CYCL-611 PO (16:35)
[2024-12-27] MEDS ORDERED: AMLO1TAB23 PO (16:35)
--- NOTE | 2024-12-27 16:49 | DVH ---
Indication: pain neck to arm. r/o cervical # or compression Technique: CT axial images of the cervical spine are obtained without contrast. Coronal and sagittal reformats were obtained. Radiation Dose Information: CTDI volume is 24.23 mGy. Dose-length product is 599.43 mGy*cm Comparison: None FINDINGS: The cervical vertebral body heights are maintained. Straightening of normal cervical spine curvature . There is moderate to severe disc space narrowing. Prominent anterior cervical osteophytosis. No pre vertebral edema. Facet articulations demonstrate moderate facet hypertrophic changes . The atlantoocc ipital, atlantoaxial articulations are intact. Moderate to severe multilevel neural foraminal stenosi s IMPRESSION: Moderate to severe cervical degenerative disc disease. Moderate cervical facet hypertrophic changes
== END 2024-12-27 20:16 | disposition home or self-care (01) | DRG 199 ==
LOC: ER 09:48 → OVERFLOW 18:02 → TELE-WESTW 23:33
PROVIDERS: ADMIT Student in an Organized Health Care Education/Training Program; ATTEND Student in an Organized Health Care Education/Training Program
DX: I16.1 Hypertensive emergency (principal); R65.10 Systemic inflammatory response syndrome (SIRS) of non-infectious origin without acute organ dysfunction; I10 Essential (primary) hypertension; E87.6 Hypokalemia; R06.82 Tachypnea, not elsewhere classified; R00.0 Tachycardia, unspecified; M54.2 Cervicalgia; R74.01 Elevation of levels of liver transaminase levels; M79.661 Pain in right lower leg; Z86.73 Personal history of transient ischemic attack (TIA), and cerebral infarction without residual deficits
CPT/HCPCS: 36415; 70450; 70551; 71045; 71275; 72125; 80048; 80053; 84484; 85025; 85379; 93005; 93971; 96374; 99291; G0378